=== PATIENT | male | born 1975 | race Caucasian/White ===

== ENCOUNTER 2017-08-02 10:31 | Emergency (ER) | payer OTHER ==
[2017-08-02 10:46] VITALS: BP 126/82; PULSE 106; TEMP 98.1; BMI 31.3
[2017-08-02] MEDS ORDERED: predniSONE 20 MG TABLET (UD) PO ONE (12:23)
[2017-08-02] MEDS ORDERED: predniSONE 20 MG TABLET (UD) ONE (12:26)
--- NOTE | 2017-08-02 12:28 | PDOC ---
History of Present Illness - General Chief Complaint: Allergic Reaction Stated Complaint: ALLERGIC RXN Time Seen by Provider: 08/02/17 12:06 History Source: Patient Exam Limitations: No Limitations - History of Present Illness Initial Comments: 08/02/17 12:24 c/o itchy red rash for 3 days to face, hands and arms pt started taking amoxicillin for preventative for tooth infection on monday rash started 2 days after, no nvd, no diff breathing or swallowing Past History - Past Medical History Allergies/Adverse Reactions: Allergies Allergy/AdvReac Type Severity Reaction Status Date / Time No Known Allergies Allergy Verified 08/02/17 10:47 Home Medications: Ambulatory Orders Hydroxyzine HCl [Atarax -] 25 mg PO TID PRN #21 tablet 08/02/17 Methylprednisolone [Medrol Dose Job] 4 mg PO ASDIR #21 tablet 08/02/17 COPD: No Other medical history: NONE - Suicide/Smoking/Psychosocial Hx Smoking History: Never smoked Hx Alcohol Use: No Drug/Substance Use Hx: No Substance Use Type: None *Physical Exam - Vital Signs Last Vital Signs Temp Pulse Resp BP Pulse Ox 98.1 F 106 H 20 126/82 95 08/02/17 10:43 08/02/17 10:43 08/02/17 10:43 08/02/17 10:43 08/02/17 10:43 - Physical Exam General Appearance: Yes: Nourished, Appropriately Dressed HEENT: positive: EOMI, LAVON, Normal ENT Inspection, TMs Normal, Pharynx Normal Neck: positive: Supple Respiratory/Chest: positive: Lungs Clear, Normal Breath Sounds. negative: Wheezing Cardiovascular: positive: Regular Rhythm, Regular Rate Gastrointestinal/Abdominal: positive: Normal Bowel Sounds, Soft Musculoskeletal: positive: Normal Inspection Extremity: positive: Normal Capillary Refill, Normal Inspection, Normal Range of Motion Integumentary: positive: Rash (hands, forearms, right side cheek with hives, erythema ) Medical Decision Making - Medical Decision Making 08/02/17 12:26 cc: allergic reaction , rash took benadryl last night with no relief. unsure if amox allergy however pt has not changed any daily routines in his life or any other factors pt stopped the Amox yesterday will call dentist to change the antibiotic will treat with steroids, atarax *DC/Admit/Observation/Transfer Diagnosis at time of Disposition: Allergic reaction Qualifiers: Encounter type: initial encounter Qualified Code(s): T78.40XA - Allergy, unspecified, initial encounter - Discharge Dispostion Disposition: HOME Condition at time of disposition: Good - Prescriptions Prescriptions: Hydroxyzine HCl [Atarax -] 25 mg PO TID PRN #21 tablet PRN Reason: itching Methylprednisolone [Medrol Dose Job] 4 mg PO ASDIR #21 tablet - Referrals Referrals: Rajeev Calvert MD [Staff Physician] - - Patient Instructions Printed Discharge Instructions: DI for Adverse Drug Reaction -- Allergic Additional Instructions: cool water cool compresses to hands and face take atarax as directed for itching take the prednisone as directed, next dose tomorrow morning follow with the milling machine tender listed below and call your dentist to notify them please return to ER if any worse - Post Discharge Activity
== END 2017-08-02 12:42 | disposition home or self-care (01) ==
LOC: JERFT 10:31
DX: L27.0 Generalized skin eruption due to drugs and medicaments taken internally (principal); T36.0X5A Adverse effect of penicillins, initial encounter; Y92.038 Other place in apartment as the place of occurrence of the external cause
CPT/HCPCS: 99281-25